=== PATIENT | female | born 1960 | race Two or more races ===

== ENCOUNTER → 2017-01-10 | Outpatient (CLI) | payer BC ==
--- NOTE | 2017-01-10 16:02 | RAD ---
Chest, 2 views, 01/10/2017: History: Shortness of breath The heart size and pulmonary vascularity are normal. No pulmonary infiltrates are seen. There is no evidence of pleural fluid. A minimal thoracic scoliosis may be positional. There are mild scattered spurs in the spine. IMPRESSION: No acute cardiopulmonary abnormality is detected.
== END | disposition home or self-care (01) ==
LOC: DXRAD 15:43
PROVIDERS: ATTEND Internal Medicine Cardiovascular Disease
DX: R06.02 Shortness of breath (principal); M53.84 Other specified dorsopathies, thoracic region
CPT/HCPCS: 71020

== ENCOUNTER → 2017-09-25 | Outpatient (CLI) | payer BC ==
--- NOTE | 2017-09-25 13:54 | RAD ---
Chest, 2 views, 09/25/2017: HISTORY: Wheezing The heart size is normal. No pulmonary infiltrate is seen. There is no evidence of pleural fluid. Minimal spurring is present in the spine. IMPRESSION: No acute cardiopulmonary abnormality is detected. Electronically signed by: Bear Barajas MD (09/25/2017 1:51 PM) [facility]
== END | disposition home or self-care (01) ==
LOC: DXRAD 09:33
PROVIDERS: ATTEND Nurse Practitioner Family
DX: R06.2 Wheezing (principal)
CPT/HCPCS: 71046